=== PATIENT | female | born 1960 | race African-American/Black ===

== ENCOUNTER 2019-11-04 13:27 | Outpatient (CLI) | payer BC, SELFPAY ==
--- NOTE | ~2019-11-04 | MM_ITS ---
EXAMINATION: MM screening [facility] HISTORY: Screening mammogram TECHNIQUE: Craniocaudal and mediolateral oblique 3-D tomosynthesis images were obtained and synthetic 2-D images were generated. CAD analysis was submitted and interpreted. COMPARISON: Comparison to multiple prior studies sequentially, with oldest reviewed study dated 03/05. BREAST PARENCHYMAL COMPOSITION: The breasts are heterogeneously dense, which may obscure small masses . FINDINGS: There are benign bilateral breast calcifications. There is no evidence of suspicious mass, calcification, or architectural distortion to suggest malignancy in either breast. There has been no suspicious interval change. IMPRESSION: 1. No mammographic evidence of malignancy. 2. Recommend routine screening mammography in one year. BI-RADS Category 2: Benign finding(s). Reviewed, dictated and finalized at location A.
--- NOTE | ~2019-11-04 | DEXA_ITS ---
Bone Density Report Name: Suzette Olivo Age: 59 Sex: Female Ethnicity: Black Date of : 1960 Indication: postmenopausal; height loss; prior fracture; asthma or emphysema; Referring Provider: GURPREET MAC Study: Bone densitometry was performed. Exam Date: November 04, 2019 Accession number: [id number] Bone Density: Region BMD T-score Z-score Classification AP Spine (L1-L4) 0.860 -1.7 -1.2 Osteopenia Femoral Neck (Left) 0.704 -1.3 -0.8 Osteopenia Total Hip (Left) 0.815 -1.0 -0.7 Normal Total Hip Bilateral Avg 0.835 -0.8 -0.6 Normal Femoral Neck (Right) 0.795 -0.5 -0.1 Normal Total Hip (Right) 0.854 -0.7 -0.4 Normal World Health Organization criteria for BMD impression classify patients as: Normal (T-score at or above -1.0), Osteopenia (T-score between -1.0 and -2.5), or Osteoporosis (T-score at or below -2.5). 10-year Fracture Risk(1): Major Osteoporotic Fracture 5.3% Hip Fracture 0.4% Reported Risk Factors: [place] (Black), Neck BMD=0.704, BMI=32.5, previous fracture (1) FRAX(R) Version 3.08. Fracture probability calculated for an untreated patient. Fracture probability may be lower if the patient has received treatment. Clinical Information Provided by Patient: Has had a low trauma fracture Has the following medical conditions: Asthma or Emphysema Patient maximum height was 64 Menopause Age: 50 No regular weight bearing exercise Does not regularly consume dairy products Drinks caffeinated beverages Onset of menses at age 14 Number of children 1 Impression: The patient has low bone mass, based on the Total Spine T-score. The patient has an estimated ten-year risk of hip fracture of 0.4% and an estimated ten-year risk of major fracture of 5.3%, based on the WHO FRAX algorithm. The patient has risk factors, including: previous fracture. Discussion: BONE DENSITY IS LOW AT ONE OR MORE SKELETAL SITES. This patient's lowest T-score is low at one or more skeletal sites. It meets the World Health Organization's (WHO) criteria for ?low bone mass? (T-score between -1.0 and -2.5). The patient's 10-year risk of fracture as calculated by FRAX is less than the threshold where pharmacological therapy is recommended by the National Osteoporosis Foundation (NOF). However, all treatment decisions require clinical judgment and consideration of individual patient factors, including patient preferences, comorbidities, previous drug use, risk factors not captured in the FRAX model (e.g., frailty, falls, vitamin D deficiency, increased bone turnover, interval significant decline in bone density) and possible under or overestimation of fracture risk by FRAX. The patient should follow a healthful lifestyle (good nutrition with adequate calcium and vitamin D, and appropriate weight-bearing exercise). Follow-Up: Conside
== END 2019-11-04 13:28 | disposition home or self-care (01) ==
PROVIDERS: PCP Internal Medicine; Visit Provider Obstetrics & Gynecology Gynecology
DX: Z12.31 Encounter for screening mammogram for malignant neoplasm of breast (principal); Z78.0 Asymptomatic menopausal state; M85.89 Other specified disorders of bone density and structure, multiple sites
CPT/HCPCS: 77063; 77067; 77080

== ENCOUNTER 2020-05-27 00:18 | Outpatient (CLI) | payer BC, SELFPAY ==
[2020-05-27 18:59] LABS: SARS-CoV-2 RNA PCR Negative
== END 2020-05-27 00:19 | disposition home or self-care (01) ==
LOC: ANHCOVIDDT 00:18
PROVIDERS: PCP Internal Medicine; Visit Provider Internal Medicine Gastroenterology
DX: Z01.812 Encounter for preprocedural laboratory examination (principal); Z20.828 Contact with and (suspected) exposure to other viral communicable diseases
CPT/HCPCS: 87635; C9803; U0003

== ENCOUNTER 2020-05-30 01:17 | Day surgery (SDC) | payer BC, SELFPAY ==
[2020-05-24 10:21] VITALS: BMI 31.4
[2020-05-30 07:59] VITALS: BMI 31.6
[2020-05-30] MEDS: LACTATED RINGERS 1,000 ML 150 ML IV CONT (08:16)
[2020-05-30 08:17] VITALS: BP 116/69; PULSE 58; RESP 18; TEMP 36.3; O2SAT 100
--- NOTE | 2020-05-30 08:22 | WPDANESEPPF ---
Anes - Initial Pre Proc Eval Procedure: Operation Date: 05/30/20 09:00 Proposed Procedures p Screening Colonoscopy - Lele Carroll MD Date/Time: 05/30/20 08:22 Surgeon: Lele Carroll MD Pre Op Diagnosis: Neoplasm Screening Patient Data Age: 59 Gender: F Height: 5 ft 2 in Weight: 78.3 kg Last Vital Signs Temp 97.4 F L 05/30/20 08:17 Pulse 58 L 05/30/20 08:17 Resp 18 05/30/20 08:17 BP 116/69 05/30/20 08:17 Pulse Ox 100 05/30/20 08:17 Allergies Allergy/AdvReac Type Severity Reaction Status Date / Time codeine Allergy upset Verified 05/30/20 07:49 stomach aspirin AdvReac Mild Nausea Verified 05/30/20 07:49 Home Medications Medication Instructions Recorded Confirmed Type No Home Medications 05/24/20 05/30/20 History Patient hx anesthesia problems: none Family hx anesthesia problems: none PMFSH Past Medical History Medical History (Updated 05/30/20 @ 08:22 by Ld Martinez MD) Bronchitis uses inhalers daily Family History Family History (System 04/11/20 @ 08:09 by Santa Pizano) Father Family history of thoracic aortic aneurysm Social History Social History (System 04/11/20 @ 08:09 by Santa Pizano) Smoking status: Never smoker Alcohol intake: current Substance use: never Substance use type: does not use Living arrangements: with family Spiritual care concerns: No Anes - Eval Final PreProcedure Day of Procedure 05/30/20 08:22 Patient weight: overweight Heart: regular rate and rhythm Lungs: clear to auscultation Airway: Mallampati scale class II Neurological: alert and oriented Last oral intake: >/= 8 hours ASA classification: II Emergent: no Anesthetic plan: proceed Anesthesia type and monitoring: general GIVS and standard monitoring Informed Consent: The patient's anesthetic plan and its attendant risks and benefits were discussed with the patient/family/POA. Questions were solicited and answers provided to the satisfaction of the patient/family/POA.
--- NOTE | 2020-05-30 08:48 | PM.HPGS ---
History of Present Illness History of Present Illness Consent: Risks, benefits, and alternatives have been discussed and questions answered. Patient agrees to proceed with procedure. Chief complaint: Neoplasm Screening Narrative: Suzette Olivo is a 59 year old female here for first screening colonoscopy Review of Systems Constitutional: Constitutional: Denies headache(s) and Denies weakness Eyes: Eyes: Denies blurry vision ENT: Reports Normal hearing present, Denies headache(s) and Denies neck pain Cardiovascular: Cardiovascular: Denies chest pain and Denies dyspnea Respiratory: Respiratory: Denies dyspnea Gastrointestinal: Gastrointestinal: Reports no additional gastrointestinal complaints Genitourinary: Genitourinary: Denies dysuria Musculoskeletal: Musculoskeletal: Denies neck pain Integumentary/Breasts: Skin/Breast: Denies dry skin Neurologic: Reports Normal hearing present, Denies headache(s) and Denies weakness Psychiatric: Psychiatric: Denies anxiety Endocrine: Endocrine: Denies change in body appearance Hematologic/Lymphatic: Hematologic/Lymphatic: Denies easy bleeding Allergic/Immunologic: Allergic/Immunologic: Denies urticaria PMFSH Past Medical History Medical History (Updated 05/30/20 @ 08:49 by Lele Carroll MD) Bronchitis uses inhalers daily Colon cancer screening Family History Family History (System 04/11/20 @ 08:09 by Santa Pizano) Father Family history of thoracic aortic aneurysm Social History Social History (System 04/11/20 @ 08:09 by Santa Pizano) Smoking status: Never smoker Alcohol intake: current Substance use: never Substance use type: does not use Living arrangements: with family Spiritual care concerns: No Meds Home Medications and Allergies Home Medications Medication Instructions Recorded Confirmed Type No Home Medications 05/24/20 05/30/20 History Allergies Allergy/AdvReac Type Severity Reaction Status Date / Time codeine Allergy upset Verified 05/30/20 07:49 stomach aspirin AdvReac Mild Nausea Verified 05/30/20 07:49 Vital Signs Vital Signs - 24 hr 05/30/20 08:17 Temperature 97.4 F L Pulse Rate 58 L Respiratory Rate 18 Blood Pressure 116/69 Pulse Oximetry 100 Exam Const: General: comfortable and no acute distress HENMT: General nose exam: Normal nares present Eyes: General: appearance normal, both eyes and all related structures Neck: Neck: no JVD Resp: Auscultation: clear to auscultation bilaterally Cardio: Rate: regular rate Rhythm: regular rhythm GI: Inspection: non-distended GI Palp: Yes Soft to palpation Skin: General skin exam: normal color Neuro: General: gait normal Speech: normal speech Extrem: General: normal to inspection Psych: Mental Status: mental status grossly normal Assessment and Plan Assessment and plan (1) Colon cancer screening: Code(s): Z12.11 - Encounter for screening for malignant neoplasm of colon Status: Acute Assessment and Plan: will proceed with colonoscopy
[2020-05-30 09:12] VITALS: BP 87/41; PULSE 60; RESP 14; O2SAT 99
[2020-05-30 09:22] VITALS: BP 99/49; PULSE 57; RESP 21; O2SAT 100
[2020-05-30 09:32] VITALS: BP 111/54; PULSE 53; RESP 18; O2SAT 100
== END 2020-05-30 09:43 | disposition home or self-care (01) ==
PROVIDERS: PCP Internal Medicine; Visit Provider Internal Medicine Gastroenterology
PROC: 0DJD8ZZ Inspection of Lower Intestinal Tract, Via Natural or Artificial Opening Endoscopic (ICD-10-PCS; CPT 45378; principal; 2020-05-30 09:00)
DX: Z12.11 Encounter for screening for malignant neoplasm of colon (principal); D12.4 Benign neoplasm of descending colon; K64.8 Other hemorrhoids
CPT/HCPCS: 45385; 88305; J2704; J7120

== ENCOUNTER 2020-12-19 09:07 | Outpatient (CLI) | payer BC, SELFPAY ==
--- NOTE | ~2020-12-19 | MM_ITS ---
EXAMINATION: MM screening [facility] pedro l[facility] HISTORY: Screening TECHNIQUE: Craniocaudal and mediolateral oblique 3-D tomosynthesis images were obtained and synthetic 2-D images were generated. CAD analysis was submitted and interpreted. COMPARISON: Comparison to multiple prior studies sequentially, with oldest reviewed study dated 09/17. BREAST PARENCHYMAL COMPOSITION: The breasts are heterogenously dense, which may obscure small masses FINDINGS: There are stable benign-appearing bilateral breast calcifications. There is no evidence of suspicious mass, calcification, or architectural distortion to suggest malignancy in either breast. T here has been no suspicious interval change. IMPRESSION: 1. No mammographic evidence of malignancy. 2. Recommend routine screening mammography in one year. BI-RADS Category 2: Benign finding(s). Reviewed, dictated and finalized at location A.
== END 2020-12-19 09:08 | disposition home or self-care (01) ==
LOC: ANHIMG 09:10
PROVIDERS: PCP Internal Medicine; Visit Provider Obstetrics & Gynecology Gynecology
DX: Z12.31 Encounter for screening mammogram for malignant neoplasm of breast (principal)
CPT/HCPCS: 77063; 77067

== ENCOUNTER 2022-06-13 17:26 | Outpatient (CLI) | payer BC, SELFPAY ==
[2022-06-13 18:51] LABS: Vitamin D 25 Hydroxy 36.7 ng/mL
== END 2022-06-13 17:27 | disposition home or self-care (01) ==
LOC: ANHLAB 17:29
PROVIDERS: PCP Internal Medicine; Visit Provider Obstetrics & Gynecology Gynecology
DX: E55.9 Vitamin D deficiency, unspecified (principal)
CPT/HCPCS: 36415; 82306

== ENCOUNTER 2022-06-19 08:45 | Outpatient (CLI) | payer BC, SELFPAY ==
[2022-06-19 09:36] LABS: Alanine Aminotransferase 18 U/L (6-35); Albumin Level 3.9 g/dL (3.5-5.1); Alkaline Phosphatase 76 U/L (38-126); Anion Gap 9 mmol/L (8-16); Aspartate Amino Transferase 25 U/L (14-36); Bilirubin,Total 0.4 mg/dL (0.2-1.3); Blood Urea Nitrogen 12 mg/dL (7-17); Calcium 8.6 mg/dL (8.4-10.2); Carbon Dioxide 25 mmol/L (22-30); Chloride 108 mmol/L (98-107); Cholesterol 160 mg/dL (0-200); Estimated Glomerular Filt Rate > 60; Glucose 91 mg/dL (65-110); HDL Direct 59 mg/dL; Potassium 4.1 mmol/L (3.4-5.0); Sodium 142 mmol/L (137-145); Triglycerides 76 mg/dL (<150)
[2022-06-19 09:47] LABS: LDL Cholesterol Direct 61 mg/dL
== END 2022-06-19 08:46 | disposition home or self-care (01) ==
LOC: ANHLAB 08:49
PROVIDERS: PCP Internal Medicine; Visit Provider Internal Medicine
DX: Z00.00 Encounter for general adult medical examination without abnormal findings (principal)
CPT/HCPCS: 36415; 80053; 80061

== ENCOUNTER 2022-10-22 08:59 | Outpatient (CLI) | payer BC, SELFPAY ==
--- NOTE | ~2022-10-22 | DEXA_ITS ---
Bone Density Report Name: ABBY TUBBS Age: 62 Sex: Female Ethnicity: Black Date of : 1960 Indication: osteopenia; prior fracture; asthma or emphysema; postmenopausal Referring Provider: GURPREET MAC Study: Bone densitometry was performed. Exam Date: October 22, 2022 Accession number: [id number] Bone Density: Region BMD T-score Z-score Classification AP Spine(L1-L4) 0.858 -1.7 -1.0 Osteopenia Femoral Neck (Left) 0.706 -1.3 -0.6 Osteopenia Total Hip (Left) 0.798 -1.2 -0.7 Osteopenia Femoral Neck (Right) 0.776 -0.7 -0.1 Normal Total Hip (Right) 0.819 -1.0 -0.5 Normal Total Hip Mean 0.809 -1.1 -0.6 Osteopenia World Health Organization criteria for BMD impression classify patients as: Normal (T-score at or above -1.0), Osteopenia (T-score between -1.0 and -2.5), or Osteoporosis (T-score at or below -2.5). 10-year Fracture Risk(1): Major Osteoporotic Fracture 5.8% Hip Fracture 0.4% Reported Risk Factors: [place] (Black), Neck BMD=0.706, BMI=31.4, previous fracture (1) FRAX(R) Version 3.08. Fracture probability calculated for an untreated patient. Fracture probability may be lower if the patient has received treatment. Previous Exams: Region Exam Age BMD T-score BMD Change BMD Change Date g/cm2 vs Baseline vs Previous AP Spine (L1-L4) 10/22/2022 62 0.858 -1.7 -0.002 (-0.3%) -0.002 (-0.3%) 11/04/2019 59 0.860 -1.7 Total Hip(Left) 10/22/2022 62 0.798 -1.2 -0.016 (-2.0%) -0.016 (-2.0%) 11/04/2019 59 0.815 -1.0 Total Hip(Right) 10/22/2022 62 0.819 -1.0 -0.035 (-4.1%) -0.035 (-4.1%) 11/04/2019 59 0.854 -0.7 *Denotes significance at 95% confidence level, LSC for AP Spine = 0.022 g/cm2, LSC for Total Hip = 0.027 g/cm2 Clinical Information Provided by Patient: Has had a low trauma fracture Has the following medical conditions: Asthma or Emphysema Patient maximum height was 62 Menopause Age: 50 No regular weight bearing exercise Does not regularly consume dairy products Onset of menses at age 16 Number of children 1 Impression: The patient has low bone mass, based on the Total Spine T-score. The patient has an estimated ten-year risk of hip fracture of 0.4% and an estimated ten-year risk of major fracture of 5.8%, based on the WHO FRAX algorithm. The patient has risk factors, including: previous fracture. The BMD for the Total Hip(Right) decreased, changing by -4.1% since the last DXA exam.
--- NOTE | ~2022-10-22 | MM_ITS ---
EXAMINATION: MM screening [facility] w pedro luis HISTORY: Screening mammogram TECHNIQUE: Craniocaudal and mediolateral oblique 3-D tomosynthesis images were obtained and synthetic 2-D images were generated. CAD analysis was submitted and interpreted. COMPARISON: 12/19/2020, 11/04/2019, 09/17/2018 BREAST PARENCHYMAL COMPOSITION: The breasts are heterogeneously dense, which may obscure small masses . FINDINGS: Scattered benign-appearing calcifications are present. No suspicious mass, calcification, o r architectural distortion are identified in either breast to suggest malignancy. There has been no s uspicious interval change. IMPRESSION: 1. No mammographic evidence of malignancy. 2. Recommend routine screening mammography in one year. BI-RADS Category 2: Benign finding(s). Reviewed, dictated and finalized at location A. RVOIR ENGINEERING MANAGER
== END 2022-10-22 09:00 | disposition home or self-care (01) ==
PROVIDERS: PCP Internal Medicine; Visit Provider Obstetrics & Gynecology Gynecology
DX: Z12.31 Encounter for screening mammogram for malignant neoplasm of breast (principal); Z78.0 Asymptomatic menopausal state; M85.88 Other specified disorders of bone density and structure, other site; M85.852 Other specified disorders of bone density and structure, left thigh; M85.851 Other specified disorders of bone density and structure, right thigh
CPT/HCPCS: 77063; 77067; 77080

== ENCOUNTER 2023-06-10 09:15 | Outpatient (CLI) | payer BC, SELFPAY ==
[2023-06-10 10:07] LABS: Basophils Percent Auto 0.8 % (0.2-1.2); Eosinophils Absolute Auto 0.2 K/mm3 (0-0.3); Eosinophils Percent Auto 4.8 % (0-4.4); Immature Granulocyte Absolute 0.01 K/mm3 (0.00-0.031); Immature Granulocyte Percent A 0.3 % (0-0.5); Lymphocytes Absolute Auto 1.86 K/mm3 (0.9-3.2); Lymphocytes Percent Auto 46.5 % (18.3-44.2); Mean Corpuscular HGB Conc 35.1 g/dl (32-36); Mean Corpuscular Hemoglobin 29.5 pg (26-34); Mean Corpuscular Volume 84.1 fl (80-100); Mean Platelet Volume 11.9 fl (7.4-10.4); Monocytes Absolute Auto 0.4 K/mm3 (0.1-0.6); Monocytes Percent Auto 10.5 % (2.6-8.5); Neutrophils Absolute Auto 1.5 K/mm3 (1.3-6.7); Neutrophils Percent Auto 37.1 % (45.5-73.1); Platelet Count Result 139 k/mm3 (150-375); Red Cell Distribution Width 15.4 % (11.5-14.5)
[2023-06-10 10:36] LABS: Alanine Aminotransferase 15 U/L (6-35); Albumin Level 3.8 g/dL (3.5-5.1); Alkaline Phosphatase 60 U/L (38-126); Anion Gap 7 mmol/L (8-16); Aspartate Amino Transferase 25 U/L (14-36); Bilirubin,Total 0.5 mg/dL (0.2-1.3); Blood Urea Nitrogen 14 mg/dL (7-17); Calcium 8.7 mg/dL (8.4-10.2); Carbon Dioxide 23 mmol/L (22-30); Chloride 108 mmol/L (98-107); Cholesterol 158 mg/dL (0-200); Estimated Glomerular Filt Rate > 60; Glucose 118 mg/dL (65-110); HDL Direct 51 mg/dL; Potassium 3.6 mmol/L (3.4-5.0); Sodium 138 mmol/L (137-145); Triglycerides 72 mg/dL (<150)
[2023-06-10 10:47] LABS: LDL Cholesterol Direct 71 mg/dL
== END 2023-06-10 09:16 | disposition home or self-care (01) ==
LOC: ANHLAB 09:17
PROVIDERS: PCP Nurse Practitioner Family; Visit Provider Nurse Practitioner Family
DX: Z00.00 Encounter for general adult medical examination without abnormal findings (principal)
CPT/HCPCS: 36415; 80053; 80061; 85025

== ENCOUNTER 2023-06-18 14:16 | Outpatient (CLI) | payer BC, SELFPAY ==
[2023-06-18 14:53] LABS: Basophils Percent Auto 0.5 % (0.2-1.2); Eosinophils Absolute Auto 0.1 K/mm3 (0-0.3); Eosinophils Percent Auto 2.2 % (0-4.4); Hematocrit 37.6 % (37.0-47.0); Hemoglobin 12.9 g/dL (12.0-15.0); Immature Granulocyte Absolute 0.01 K/mm3 (0.00-0.031); Immature Granulocyte Percent A 0.2 % (0-0.5); Lymphocytes Absolute Auto 2.43 K/mm3 (0.9-3.2); Lymphocytes Percent Auto 43.9 % (18.3-44.2); Mean Corpuscular HGB Conc 34.3 g/dl (32-36); Mean Corpuscular Hemoglobin 28.4 pg (26-34); Mean Corpuscular Volume 82.8 fl (80-100); Mean Platelet Volume 11.2 fl (7.4-10.4); Monocytes Absolute Auto 0.4 K/mm3 (0.1-0.6); Monocytes Percent Auto 7.8 % (2.6-8.5); Neutrophils Absolute Auto 2.5 K/mm3 (1.3-6.7); Neutrophils Percent Auto 45.4 % (45.5-73.1); Platelet Count Result 190 k/mm3 (150-375); Red Blood Count 4.54 M/mm3 (4.2-5.4); Red Cell Distribution Width 15.1 % (11.5-14.5); White Blood Count 5.5 K/mm3 (4.5-10.0)
[2023-06-18 15:01] LABS: Hemoglobin A1C 5.7 % (<5.7)
== END 2023-06-18 14:17 | disposition home or self-care (01) ==
LOC: ANHLAB 14:17
PROVIDERS: PCP Nurse Practitioner Family; Visit Provider Nurse Practitioner Family
DX: D70.9 Neutropenia, unspecified (principal); R73.01 Impaired fasting glucose
CPT/HCPCS: 36415; 83036; 85025

== ENCOUNTER 2023-06-24 15:12 | Outpatient (CLI) | payer BC, SELFPAY ==
--- NOTE | ~2023-06-24 | XR_ITS ---
EXAMINATION:[id number]_[id number] DATE: 06/24/2023 15:34 INDICATION: Left neck pain TECHNIQUE: AP, lateral, and odontoid views of the cervical spine are provided. COMPARISON: None FINDINGS: Alignment is normal. The odontoid process is intact. No fracture is identified. The vertebr al body heights are maintained. There is mild loss of intervertebral disc space height at C4-5. Small degenerative osteophytes project from the anterior endplates of multiple vertebral bodies. There is multilevel mild facet and uncovertebral joint osteoarthritis. Prevertebral soft tissues are normal. IMPRESSION: 1. Mild cervical spondylosis without acute findings. Reviewed, dictated and finalized at location B. PLANNER
--- NOTE | ~2023-06-24 | XR_ITS ---
Left Shoulder Technique: AP and scapular Y views were obtained. Clinical History: Pain Findings: No fracture or dislocation is seen. Osseous alignment is anatomic. The glenohumeral and acr omioclavicular joint spaces are preserved. Soft tissues are unremarkable. Impression: Unremarkable left shoulder radiographs. Reviewed, dictated and finalized at [facility]. Impression: Unremarkable left shoulder radiographs.
[2023-06-24 17:47] LABS: Basophils Percent Auto 0.4 % (0.2-1.2); Eosinophils Absolute Auto 0.2 K/mm3 (0-0.3); Eosinophils Percent Auto 3.2 % (0-4.4); Hemoglobin 12.5 g/dL (12.0-15.0); Immature Granulocyte Absolute 0.01 K/mm3 (0.00-0.031); Immature Granulocyte Percent A 0.2 % (0-0.5); Lymphocytes Absolute Auto 2.32 K/mm3 (0.9-3.2); Mean Corpuscular HGB Conc 33.8 g/dl (32-36); Mean Corpuscular Hemoglobin 28.7 pg (26-34); Mean Corpuscular Volume 85.1 fl (80-100); Mean Platelet Volume 11.9 fl (7.4-10.4); Monocytes Absolute Auto 0.4 K/mm3 (0.1-0.6); Monocytes Percent Auto 6.9 % (2.6-8.5); Neutrophils Absolute Auto 2.2 K/mm3 (1.3-6.7); Neutrophils Percent Auto 43.3 % (45.5-73.1); Platelet Count Result 173 k/mm3 (150-375); Red Blood Count 4.35 M/mm3 (4.2-5.4); Red Cell Distribution Width 15.5 % (11.5-14.5)
[2023-06-24 18:07] LABS: Alanine Aminotransferase 16 U/L (6-35); Albumin Level 3.9 g/dL (3.5-5.1); Alkaline Phosphatase 64 U/L (38-126); Anion Gap 6 mmol/L (8-16); Aspartate Amino Transferase 23 U/L (14-36); Bilirubin,Total 0.5 mg/dL (0.2-1.3); Blood Urea Nitrogen 16 mg/dL (7-17); Calcium 8.9 mg/dL (8.4-10.2); Carbon Dioxide 26 mmol/L (22-30); Chloride 108 mmol/L (98-107); Cholesterol 164 mg/dL (0-200); Estimated Glomerular Filt Rate > 60; Glucose 104 mg/dL (65-110); HDL Direct 62 mg/dL; Potassium 3.8 mmol/L (3.4-5.0); Sodium 140 mmol/L (137-145); Triglycerides 82 mg/dL (<150)
[2023-06-24 18:08] LABS: Hemoglobin A1C 5.6 % (<5.7)
[2023-06-24 18:17] LABS: LDL Cholesterol Direct 74 mg/dL
== END 2023-06-24 15:13 | disposition home or self-care (01) ==
LOC: ANHIMG 15:18
PROVIDERS: PCP Nurse Practitioner Family; Visit Provider Nurse Practitioner Family
DX: Z00.00 Encounter for general adult medical examination without abnormal findings (principal); R73.01 Impaired fasting glucose; Z13.220 Encounter for screening for lipoid disorders
CPT/HCPCS: 36415; 72040; 73030; 80053; 80061; 83036; 85025

== ENCOUNTER 2023-07-15 14:25 | Outpatient (CLI) | payer BC, SELFPAY ==
--- NOTE | ~2023-07-15 | MR_ITS ---
MRI of the left shoulder Technique: Axial proton-density fat-sat images, coronal proton density fat-sat and T2 fat-sat images, and sagittal T1-weighted and T2 fat-sat images were acquired. Clinical History: Pain Findings: There is mild AC joint degenerative change. Coracoclavicular, coracoacromial, and coracohum eral ligaments appear intact. There is severe supraspinatus and infraspinatus tendinosis, with suspected moderate grade interstitia l tear at the very distal supraspinatus tendon insertion. Subscapularis tendon is intact. Tendon of l hayden head of the biceps is intact. No labral tear identified. Inferior glenohumeral ligament is intact. There is minimal fluid in the subacromial/subdeltoid bursa. No degenerative change or effusion to glenohumeral joint. No muscle atrophy or edema evident. Impression: Advanced supraspinatus and infraspinatus tendinosis with probable focal moderate grade interstitial t ear at the very distal supraspinatus tendon insertion. Minimal subacromial/subdeltoid bursitis. Reviewed, dictated and finalized at [facility]. CTOR QUALITY ASSURANCE Impression: Advanced supraspinatus and infraspinatus tendinosis with probable focal moderat e grade interstitial tear at the very distal supraspinatus tendon insertion. Minimal subacromial/subdeltoid bursitis.
--- NOTE | ~2023-07-15 | MR_ITS ---
MRI of the cervical spine Clinical History: Radiculopathy Technique: Axial T2-weighted and gradient images, and sagittal T1-weighted, T2-weighted, and STIR esthela ges were acquired. Findings: There is no fracture or subluxation of the cervical spine. Vertebral bodies maintain normal height and alignment. No bone marrow signal abnormality seen. No significant disc bulge or herniation seen at any cervical level. There is no spinal canal stenosis , cord compression, or neural foraminal narrowing of the cervical spine. No epidural mass or collecti on seen. No abnormal signal seen in the spinal cord. Paravertebral soft tissues are unremarkable. Impression: Unremarkable exam. Reviewed, dictated and finalized at location . ENTICESHIP TRAINING REPRESENTATIVE Impression: Unremarkable exam.
== END 2023-07-15 14:26 | disposition home or self-care (01) ==
LOC: ANHIMG 14:28
PROVIDERS: PCP Nurse Practitioner Family; Visit Provider Nurse Practitioner Family
DX: M25.512 Pain in left shoulder (principal); M54.12 Radiculopathy, cervical region; M75.52 Bursitis of left shoulder
CPT/HCPCS: 72141; 73221

== ENCOUNTER 2023-10-06 10:46 | Outpatient (CLI) | payer BC, SELFPAY ==
--- NOTE | ~2023-10-06 | US_ITS ---
EXAMINATION: US transvaginal DATE: 10/06/2023 11:13 INDICATION: Postmenopausal bleeding TECHNIQUE: Multiple transabdominal and endovaginal sonographic images of the pelvis were obtained. COMPARISON: None. FINDINGS: Uterus: 8.7 x 5.1 x 6.0 cm. Multiple uterine fibroids measuring up to 3.9 cm. Endometrial complex concepción sures 13 mm. Right Ovary: Not visualized. Left Ovary: . Visualized. There is no free fluid in the pelvis. IMPRESSION: Thickened endometrial stripe, consider gynecology referral and endometrial sampling. Multiple uterine fibroids. Bilateral ovaries not visualized. Reviewed, dictated and finalized at location K. ESALE ACCOUNT EXECUTIVE IMPRESSION: Thickened endometrial stripe, consider gynecology referral and endometrial samp ling. Multiple uterine fibroids. Bilateral ovaries not visualized.
== END 2023-10-06 10:47 ==
LOC: MICIMG 10:47
PROVIDERS: PCP Nurse Practitioner; Visit Provider Nurse Practitioner
DX: N95.0 Postmenopausal bleeding (principal); N85.00 Endometrial hyperplasia, unspecified; D25.9 Leiomyoma of uterus, unspecified
CPT/HCPCS: 76830

== ENCOUNTER 2023-10-20 00:46 | Day surgery (SDC) | payer BC, SELFPAY ==
[2023-10-17 09:19] VITALS: BMI 30.1
--- NOTE | 2023-10-17 09:23 | PC.NURSE ---
Report to the Outpatient Waiting Room, entrance under the green pavilion located off [facility], at time 1215 on date 10/20/23. Planned Procedure Time: 1415. Time changes happen often and if your time is changed the preop area will call you the afternoon before. - You and your visitor will be asked to self-screen and do not enter if you have any COVID symptoms. - A mask is optional within the hospital at this time. Patients may have clear liquids (water, carbonated beverages, clear teas, apple juice) until 3 hours prior to surgery with a maximum of 20 ounces. - No food from midnight until time of surgery Take the following medications with a SIP of water the morning of surgery: TYLENOL/INHALER IF NEEDED DO NOT STOP ANY OF YOUR OTHER PRESCRIPTION MEDICATIONS PRIOR TO SURGERY ?EXCEPT THE FOLLOWING Medications to discontinue per physician: N/A Date to take last dose: N/A Please no make-up, nail ivorian, hairspray, perfume, deodorant, or body powder the day of surgery. No jewelry (including any body piercings) or valuables the day of surgery, leave them at home. Please take a shower or bath the night before, or the morning of, surgery with an antibacterial soap. Wear comfortable, loose fitting clothing. - Jewelry must be removed prior to entering the operating room. Rings and piercings that are not removed may be cut off. - The hospital will not accept responsibility for valuables. - Please leave all valuables, including medications, at home the day of surgery. If you are going home after surgery, a licensed national flatbed truck driver must drive you home. - NO public transportation without another adult if you receive anesthesia. - We recommend that an adult stay with you for 24 hours following discharge. - We also recommend that you do not drive, make important decision, drink alcoholic beverages, or take any drugs that were not prescribed by your health care provider for at least 24 hours after your discharge time. Follow any additional instructions given to you from your surgeon. If you or anyone in your household have experienced Covid symptoms in the past week, please notify your surgeon or the nurse liaison at the phone number below for possible testing. Telephone instructions given to PT - ABBY BURTON and asked if any additional questions and then verbalized understanding. Patient advised to call surgeon office or pre surgery nurse liaison [phone] if any additional questions.
--- NOTE | 2023-10-20 08:14 | WPDHPUPDATE1 ---
History and Physical Update Update Date/Time: 10/20/23 08:14 History and Physical has been reviewed, including an updated exam of the patient. There are NO changes in the patient's condition. Risks, benefits, and alternatives have been discussed and questions answered. Patient agrees to proceed with procedure.
--- NOTE | 2023-10-20 08:14 | PM.HPGS ---
History of Present Illness History of Present Illness Consent: Risks, benefits, and alternatives have been discussed and questions answered. Patient agrees to proceed with procedure. Chief complaint: Post Menopausal Bleeding, Fibroids Narrative: Suzette Guajardo is a 63 year old female with an episode of postmenopausal bleeding. Pelvic ultrasound revealed a thickened endometrium at 13mm. In addition the patient was multiple fibroids. It was recommended to proceed with D&C hysteroscopy in the operating room due to the fibroids possibly interfering with visualization. Risks of infection, bleeding, perforation, fluid imbalance, and possible pathology was discussed. The patient voices understanding and agrees to proceed. Review of Systems Review of Systems: not repeated day of surgery; patient states no changes in status PMFSH Past Medical History Medical History (Updated 10/20/23 @ 08:17 by Bertha Ragsdale MD) Bronchitis uses inhalers daily History of ectopic 1984 and 1992 both surgically managed (normal spontaneous vaginal delivery) Surgical History Surgical History (Updated 10/20/23 @ 08:17 by Bertha Ragsdale MD) History of ankle surgery secondary to fracture 2007 Family History Family History Father Family history of thoracic aortic aneurysm Social History Social History Smoking packs per day: 1 Smoking cigarettes per day: 20.0 Years smoked: 30 Smoking pack-years: 30.00 Smoking status: Former smoker Tobacco type: cigarettes Second hand tobacco smoke exposure: No Smoking end date: 08/18/12 Alcohol intake: current Alcohol use details: 2/MONTH Substance use: never Substance use type: does not use Do You Feel Safe in your Home?: Yes Lack of Transportation: No Lack of Food: Never True Current Housing: I Have Housing Concerned About Future Housing: No Difficulty Paying Gas/Electric Bills: No Difficulty Paying for Meds: No Currently Unemployed: No Education: High School Diploma/GED Difficulty w/ Childcare or Family Care: No Living arrangements: with family Spiritual care concerns: No Meds Home Medications and Allergies Home Medications Medication Instructions Recorded Confirmed Type acetaminophen 500 mg tablet 500 mg PO Q6H PRN Pain 07/24/21 10/17/23 History (Tylenol Extra Strength) albuterol sulfate 90 mcg/actuation 1 puff inhalation Q6H PRN 11/02/22 03/01/24 Rx aerosol inhaler (ProAir HFA) bronchospasm #8.5 grams Allergies Allergy/AdvReac Type Severity Reaction Status Date / Time codeine Allergy Severe upset Verified 10/17/23 09:18 stomach aspirin AdvReac Mild Nausea Verified 10/17/23 09:18 Exam Const: General: healthy appearing and alert Orientation/consciousness: patient oriented x3 Resp: Effort & Inspection: normal respiratory effort : External Female Exam: normal external appearance Speculum Exam - Vagina: normal appearance of the vagina and normal vaginal discharge Speculum Exam - Cervix: normal appearance of the cervix Bimanual exam- vagina & uterus: uterine size normal and consistency normal Bimanual Exam- Adnexa, other: normal adnexae and No adnexal tenderness Neuro: General: patient oriented x3 Assessment and Plan Assessment and plan (1) Post-menopausal bleeding: Code(s): N95.0 - Postmenopausal bleeding Status: Acute Assessment and Plan: plan to proceed with D&C hysteroscopy
--- NOTE | 2023-10-20 08:30 | WPDANESEPPF ---
Anes - Initial Pre Proc Eval Procedure: Operation Date: 10/20/23 14:15 Proposed Procedures p Hysteroscopy Dilation and Curettage - Bertha Ragsdale MD Date/Time: 10/20/23 08:30 Surgeon: Bertha Ragsdale MD Pre Op Diagnosis: Post Menopausal Bleeding, Fibroids Patient Data Age: 63 Gender: F Height: 1.6 m Weight: 77.15 kg Allergies Allergy/AdvReac Type Severity Reaction Status Date / Time codeine AdvReac Severe upset Verified 10/20/23 12:08 stomach aspirin AdvReac Mild Nausea Verified 10/20/23 12:08 Home Medications Medication Instructions Recorded Confirmed Type acetaminophen 500 mg tablet 500 mg PO Q6H PRN Pain 07/24/21 10/17/23 History (Tylenol Extra Strength) albuterol sulfate 90 mcg/actuation 1 puff inhalation Q6H PRN 06/19/22 10/17/23 Rx aerosol inhaler (ProAir HFA) bronchospasm #8.5 grams Patient hx anesthesia problems: none Family hx anesthesia problems: none Results Review: All pre-operative results and documents have been reviewed as part of the pre-operative evaluation. [facility] Past Medical History Medical History (Updated 10/20/23 @ 08:31 by Torey Enamorado DO) Anxiety Bronchitis uses inhalers daily Fibroid History of ectopic 1984 and 1992 both surgically managed (normal spontaneous vaginal delivery) Surgical History Surgical History (Updated 10/20/23 @ 08:31 by Torey Enamorado DO) History of ankle surgery secondary to fracture 2007 History of tubal ligation Family History Family History Father Family history of thoracic aortic aneurysm Social History Social History Smoking packs per day: 1 Smoking cigarettes per day: 20.0 Years smoked: 30 Smoking pack-years: 30.00 Smoking status: Former smoker Tobacco type: cigarettes Second hand tobacco smoke exposure: No Smoking end date: 08/18/12 Alcohol intake: current Alcohol use details: 2/MONTH Substance use: never Substance use type: does not use Do You Feel Safe in your Home?: Yes Lack of Transportation: No Lack of Food: Never True Current Housing: I Have Housing Concerned About Future Housing: No Difficulty Paying Gas/Electric Bills: No Difficulty Paying for Meds: No Currently Unemployed: No Education: High School Diploma/GED Difficulty w/ Childcare or Family Care: No Living arrangements: with family Spiritual care concerns: No Anes - Eval Final PreProcedure Day of Procedure 10/20/23 08:30 Patient weight: obese Heart: regular rate and rhythm Lungs: clear to auscultation Airway: Mallampati scale class II Neurological: alert and oriented Last oral intake: >/= 8 hours ASA classification: II Emergent: no Anesthetic plan: proceed Anesthesia type and monitoring: general GIVS and standard monitoring Results Review: All pre-operative results and documents have been reviewed as part of the pre-operative evaluation. Informed Consent: The patient's anesthetic plan and its attendant risks and benefits were discussed with the patient/family/POA. Questions were solicited and answers provided to the satisfaction of the patient/family/POA.
[2023-10-20] MEDS: ACETAMINOPHEN 500 MG TABLET 1000 MG PO (12:11)
[2023-10-20 12:25] VITALS: BP 131/93; PULSE 67; RESP 16; TEMP 36.2; O2SAT 100
[2023-10-20] MEDS: LACTATED RINGERS 1,000 ML 30 ML IV CONT (13:44)
--- NOTE | 2023-10-20 13:44 | W.PM.PROC2 ---
Procedure Note - Detailed Date of Procedure 10/20/23 Pre-op Diagnosis Post Menopausal Bleeding Post-op Diagnosis Same Procedure Performed D&C hysteroscopy with endometrial polypectomy Surgeon Bertha Ragsdale MD Anesthesia MAC Findings The uterus sounds to 8cm and appears grossly atrophic. There is a large polyp arising from the left fundus. There was a sessile fibroid posteriorly and a sessile fibroid on the right sidewall. Description of Procedure The patient is taken to the operating room and placed under anesthesia in the dorsal lithotomy position. She was prepped and draped in the usual sterile. A bivalve speculum was placed in the vagina and the cervix grasped on the anterior lip with a tenaculum. The uterus is sounded to 8cm. The hysteroscope was placed and with the large polyp noted the resection device is opened and placed. Under direct visualization the polyp was removed in its entirety. The endometrium was fully visible around the fibroids therefore I did not resect the fibroids. Estimated Blood Loss 5 Drains No Packing No Pathology Yes ( Endometrial shavings and curettings) Complications No immediate complications Condition Stable Disposition PACU
[2023-10-20 13:49] VITALS: BP 97/63; PULSE 62; RESP 16; O2SAT 100
[2023-10-20 14:20] VITALS: BP 117/70; PULSE 56; RESP 16
[2023-10-20 14:39] VITALS: BP 98/56; PULSE 59; RESP 16
== END 2023-10-20 14:51 | disposition home or self-care (01) ==
PROVIDERS: PCP Nurse Practitioner Family; Visit Provider Obstetrics & Gynecology Gynecology
PROC: 0U5B8ZZ Destruction of Endometrium, Via Natural or Artificial Opening Endoscopic (ICD-10-PCS; CPT 58563; principal; 2023-10-20 14:15)
DX: N95.0 Postmenopausal bleeding (principal); N84.0 Polyp of corpus uteri; J40 Bronchitis, not specified as acute or chronic; Z87.891 Personal history of nicotine dependence; E66.9 Obesity, unspecified; Z68.29 Body mass index [BMI] 29.0-29.9, adult; Z79.51 Long term (current) use of inhaled steroids
CPT/HCPCS: 58558; 88305; A9270; J2250; J2704; J3010; J7120

== ENCOUNTER 2023-12-17 10:09 | Outpatient (CLI) | payer BC, SELFPAY ==
--- NOTE | ~2023-12-17 | MM_ITS ---
EXAMINATION: MM screening rebecca BI w pedro luis HISTORY: Screening TECHNIQUE: Craniocaudal and mediolateral oblique 3-D tomosynthesis images were obtained and synthetic 2-D images were generated. CAD analysis was submitted and interpreted. COMPARISON: Comparison to multiple prior studies sequentially, with oldest reviewed study dated 2018. BREAST PARENCHYMAL COMPOSITION: Dense: The breasts are heterogeneously dense, which may obscure small masses FINDINGS: There is no evidence of suspicious mass, calcification, or architectural distortion to sugg est malignancy in either breast. There has been no suspicious interval change. IMPRESSION: 1. No mammographic evidence of malignancy. 2. Recommend routine screening mammography in one year. BI-RADS Category 1: Negative Reviewed, dictated and finalized at location B.
== END 2023-12-17 10:10 | disposition home or self-care (01) ==
LOC: ANHIMG 10:12
PROVIDERS: PCP Nurse Practitioner Family; Visit Provider Obstetrics & Gynecology Gynecology
DX: Z12.31 Encounter for screening mammogram for malignant neoplasm of breast (principal)
CPT/HCPCS: 77063; 77067

== ENCOUNTER 2024-11-04 08:04 | Outpatient (CLI) | payer BC, SELFPAY ==
[2024-11-04 09:43] LABS: Basophils Percent Auto 0.7 % (0.2-1.2); Eosinophils Absolute Auto 0.2 K/mm3 (0-0.3); Eosinophils Percent Auto 3.7 % (0-4.4); Hemoglobin 13.9 g/dL (12.0-15.0); Immature Granulocyte Absolute 0.01 K/mm3 (0.00-0.031); Immature Granulocyte Percent A 0.2 % (0-0.5); Lymphocytes Absolute Auto 2.19 K/mm3 (0.9-3.2); Lymphocytes Percent Auto 47.9 % (18.3-44.2); Mean Corpuscular HGB Conc 34.8 g/dl (32-36); Mean Corpuscular Hemoglobin 30.1 pg (26-34); Mean Corpuscular Volume 86.6 fl (80-100); Mean Platelet Volume 12.3 fl (7.4-10.4); Monocytes Absolute Auto 0.3 K/mm3 (0.1-0.6); Neutrophils Absolute Auto 1.9 K/mm3 (1.3-6.7); Neutrophils Percent Auto 40.5 % (45.5-73.1); Platelet Count Result 145 k/mm3 (150-375); Red Blood Count 4.62 M/mm3 (4.2-5.4); Red Cell Distribution Width 13.6 % (11.5-14.5); White Blood Count 4.6 K/mm3 (4.5-10.0)
[2024-11-04 09:58] LABS: Alanine Aminotransferase 21 U/L (6-35); Albumin Level 4.3 g/dL (3.5-5.1); Alkaline Phosphatase 56 U/L (38-126); Anion Gap 8 mmol/L (4-12); Aspartate Amino Transferase 30 U/L (14-36); Bilirubin,Total 0.8 mg/dL (0.2-1.3); Blood Urea Nitrogen 16 mg/dL (7-17); Calcium 8.9 mg/dL (8.4-10.2); Carbon Dioxide 25 mmol/L (22-30); Chloride 107 mmol/L (98-107); Cholesterol 184 mg/dL (0-200); Estimated Glomerular Filt Rate 53; Glucose 97 mg/dL (65-110); HDL Direct 82 mg/dL; Potassium 4.3 mmol/L (3.4-5.0); Sodium 140 mmol/L (137-145); Triglycerides 87 mg/dL (<150)
[2024-11-04 10:03] LABS: Iron 101 ug/dL (37-170)
[2024-11-04 10:09] LABS: LDL Cholesterol Direct 67 mg/dL
[2024-11-04 10:14] LABS: Percent Iron Saturation 41 % (20-50)
[2024-11-04 10:23] LABS: Hemoglobin A1C 5.6 % (<5.7)
== END 2024-11-04 08:05 | disposition home or self-care (01) ==
LOC: ANHLAB 08:05
PROVIDERS: PCP Nurse Practitioner Family; Visit Provider Nurse Practitioner Family
DX: Z00.00 Encounter for general adult medical examination without abnormal findings (principal); R06.02 Shortness of breath; R73.01 Impaired fasting glucose
CPT/HCPCS: 36415; 80053; 80061; 82306; 82728; 83036; 83540; 83550; 85025

== ENCOUNTER 2024-12-13 09:15 | Outpatient (CLI) | payer BC, SELFPAY ==
--- OUTSIDE RECORDS SUMMARY | 2024-12-13 09:55 | XMS_ITS | Data Portability ---
Author Organization [place] - [facility] [employer], Main Office Address [address] [place] [address] Care Team Providers Care Sign Painter Name Role Phone THOMAS MENDEZ Primary Care Provider [phone] CUAUHTEMOC VIGIL Lab Technologist [phone] Assessment Encounter Date Assessment Date Assessment LastModified by Organization Details LastModified Time 11/28/2023 11/28/2023 63-year-old patient presents today with right foot pain after a fall on 11/24 23. She states she was stepping off of the bus when she stepped into a hole and twisted her right foot. She also landed on her right outstretched arm. She presented to the emergency room where x-rays were taken. She was told she had a fracture in her foot. At that time she had swelling in her right wrist but no pain. She presents today in a boot and a wrist brace. Today she rates the pain in her foot a 5/10. She denies any pain in the wrist. Review of systems per patient questionnaire Imaging: X-rays of the right foot show a slightly displaced avulsion fracture of the base of the 5th metatarsal. No obvious fracture in the right wrist. Physical exam: Boot was removed. No edema or bruising present. Pain with palpitation over base of the 5th metatarsal. No pain around ankle or elsewhere around foot. Able to perform ankle range of motion and wiggle toes. Sensation intact throughout. No pain with firm palpitation around the wrist or hand. No bruising or edema. No issues with wrist or hand range of motion. Sensation intact throughout. We will have her remain in the boot for a few weeks while her fracture heals. She is weight-bearing as tolerated. She can ice and elevate as well as take anti-inflammator ies for pain. She has no pain or issues with the wrist. She does not need to wear the wrist brace if she does not want to. We will see her back in 2-3 weeks with x-rays of the foot to check her progress. She is in agreement with this plan. Not available 11/29/2023 12:35:04 12/17/2023 12/17/2023 63-year-old female presents for follow-up of her right foot base of the 5th metatarsal avulsion. The injury happened on 12/06/2023. She has been wearing a Cam boot, icing, and taking Tylenol. She has gotten somewhat better, reports her pain as 6/10. He still has tenderness over the base of the 5th metatarsal. Sensation intact to light touch throughout. Good ankle and toe range of motion. X-rays were reviewed, demonstrating a base of the 5th metatarsal avulsion We will continue with weight-bearing as tolerated in the boot. We will send her to physical therapy, where they can potentially do some modalities such as ultrasound or stem. 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 We will have her follow-up in 4 weeks with repeat x-rays. Not available 12/17/2023 22:45:18 01/14/2024 01/14/2024 63-year-old female presents for follow-up of her right foot, pseudo Darby fracture being treated conservatively. She has been doing physical therapy, also taking Tylenol. She currently rates her pain as 4/10. She is still wearing the boot. She still has tenderness palpation at the base of the 5th metatarsal. Good ankle range of motion, neurovascular intact. X-rays reviewed, demonstrating a healing pseudo Darby avulsion fracture with callus formation At this point she still has some tenderness so we will need to give it a little bit more time. She should continue doing physical therapy, wearing the boot. We will see her back in 4 weeks with repeat x-rays. At that time, as long as her pain is improved, we will anticipate weaning her out of the boot into a lace-up ankle brace and into a regular shoe. 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 She has not ready for that yet, but may be when she comes out of the boot next time. Not available 01/14/2024 18:56:13 02/11/2024 02/11/2024 63-year-old female presents for follow-up of her right pseudo Darby fracture treated conservatively. He has been about 6 weeks since her injury. She has been in a boot. She reports feeling better, and still working on getting the swelling down. She worked with physical therapy with a primarily ice her and she feels like that has been helping. She currently rates her pain as 4/10. She feels like she is ready to return to driving, and has been driving her own car without difficulty. 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 She has some slight soreness at the base of 5th metatarsal, full ankle range of motion. No difficulty with ambulation. x-rays were reviewed, demonstrating maintenance of alignment. Callus formation.Fractu re line still visible At this point she is progressing well. She should continue with the home exercises and continue to ice. She is cleared to drive as tolerated beginning on February 15. We will have her follow up in 4-6 weeks for recheck. Not available 02/12/2024 18:51:14 03/24/2024 03/24/2024 63-year-old female presents for follow-up of her right pseudo Darby fracture treated conservatively. He has been about 6 weeks since her injury. She has been walking in a shoe and back to work since February 15. She reports feeling good. She does not have discomfort in the foot until towards the end of the day after work. She has some slight soreness at the base of 5th metatarsal, full ankle range of motion. No difficulty with ambulation. At this point she is progressing well. She is cleared for fully duty and does not need to return for rechecks unless new issues arise. She is in agreement with this plan. Not available 03/24/2024 14:21:42 Plan of Treatment Reminders Order Date Submit Date Provider Last Modified By Organization Details Last Modified Time Details Appointments None recorded. Lab None recorded. Referral physical therapist referral - continuati on of therapy 2023 024 [facility] [place], [address] [place] [address], [place], [address], 16:25:20 physical therapist referral - W/C. Please contact pt to schedule apt for R foot. Thanks 2023 024 [facility] [place], [address], [place], [address], 4 05:41:08 Procedures None recorded. Surgeries None recorded. Imaging XR, foot 2023 [facility] [place], [address], [place], [address], 4 14:44:48 XR, foot 2023 024 [facility] [place], [address], [place], [address], 4 00:17:02 XR, foot, 3 or more view 2023 024 [facility] [place], [address], [place], [address], 4 07:38:39 Medication Orders None recorded. Patient TargetsNo targets recorded. Patient InstructionsNo instructions recorded. Reason for Referral Physical Therapist Referral for Pain in right foot R foot W/C. Please contact pt to schedule apt for R foot. Thanks Referring Physician: Suman Andino, Orthopedic Surgery, Encounter Date: 12/17/2023 Physical Therapist Referral for Pain in right foot continuation of therapy Referring Physician: Suman Andino, Orthopedic Surgery, Encounter Date: 01/14/2024 Results Created Date Observation Date Name Description Value Unit Range Abnormal Flag Note LastModifiedBy Organization Detail LastModifiedTime 11/26/1911/24/2023 XR, foot, 3 or more view No observ ation record ed. [email or web address] Not Available 2023 11:07:43 12/17/19 XR, foot, 3 or more view No observ ation record ed. [email or web address] [facility] [place] [address], [place], [address], 12/17/2023 14:40:24 01/14/20 24 XR, foot No observ ation record ed. [email or web address] [facility] [place] [address], [address], 01/14/2024 14:12:20 02/11/20 24 XR, foot No observ ation record ed. [email or web address] [facility] [place] [address], [address], 02/11/2024 14:18:58 Result Notes None recorded. Problems Name Problem SNOMED Code Status Onset Date Resolution Date Notes Provider Name and Address Organization Details Recorded Time Pain in right foot 7678626859754 07 Active 2023 NGUYEN Judge [email or web address] [facility] [employer] 4 09:56:53 Pain of right wrist 5944997121868 00 Active 2023 NGUYEN Judge, [employer] 4 10:04:23 Closed fracture of fifth metatarsal bone 29473547 Active 2023 NGUYEN Judge, [employer] [facility] 14:13:14 Problem Notes None recorded. Procedures Surgical History Date Name Laterality Status Provider Name and Address Organization Details Recorded Time Ankle Surgery completed NGUYEN Valdovinos [email or web address] [employer] 11/28/2023 09:56:18 Imaging Results Imaging Date Name Status LastModified by [facility] Details LastModified Time 11/24/2023 XR, foot, 3 or more view completed [email or web address] Information not available 11/26/2023 11:07:43 12/17/2023 XR, foot, 3 or more view completed [email or web address] [facility] [place] [address], [address], 12/17/2023 14:40:24 01/14/2024 XR, foot completed [email or web address] [facility] [place] [address], [place], [address], 01/14/2024 14:12:20 02/11/2024 XR, foot completed [email or web address] [facility] [place] [address], [place], [address], 02/11/2024 14:18:58 Procedure Notes None recorded. Medical Equipment None Reported. Allergies No known drug allergies Medications Name Sig Start Date Stop Date Status Note LastModified by Organization Details LastModified Time metronidazole 0.75 % (37.5 mg/5 gram) vaginal gel active Not Available Not Available Not Available alprazolam 0.25 mg tablet 11/27 completed Not Available Not Available Not Available diazepam 2 mg tablet 11/27 completed Not Available Not Available Not Available ergocalciferol (vitamin D2) 1,250 mcg (50,000 unit) capsule 11/27 completed Not Available Not Available Not Available albuterol sulfate HFA 90 mcg/actuation aerosol inhaler active Not Available Not Available Not Available naproxen 500 mg tablet active Not Available Not Available No t Available diazepam 5 mg tablet 11/27 completed Not Available Not Available Not Available mometasone 0.1 % topical solution 2 drops for ear 2 times a day for 30 days 11/27 completed Not Available Not Available Not Available Vitals Date Recorded Body height Body mass index (BMI) Body weight Pain severity - 0-10 verbal numeric rating [Score] - Reported Provider Name and Address Organization Details Last Updated DateTime 11/28/2023 160.02 cm 30.5 kg/m2 75624.89 g NGUYEN Rob [facility] 11/28/2023 09:54:44 Date Recorded Body height Body mass index (BMI) Body weight Provider Name and Address Organization Details Last Updated DateTime 12/17/2023 160.02 cm 30.5 kg/m2 39527.89 g Jeannette Person CNA [facility] 12/17/2023 14:38:42 Date Recorded Body height Body mass index (BMI) Body weight Provider Name and Address Organization Details Last Updated DateTime 01/14/2024 160.02 cm 30.5 kg/m2 97699.89 g Jeannette Person CNA [facility] [employer] [facility] 01/14/2024 14:11:39 Date Recorded Body height Body mass index (BMI) Body weight Provider Name and Address Organization Details Last Updated DateTime 02/11/2024 162.56 cm 29.5 kg/m2 44647.89 g Jeannette Person CNA [facility] [employer] [facility] 02/11/2024 14:18:17 Date Recorded Body height Body mass index (BMI) Body weight Pain severity - 0-10 verbal numeric rating [Score] - Reported Provider Name and Address Organization Details Last Updated DateTime 03/24/2024 162.56 cm 29.5 kg/m2 22761.89 g 2 NGUYEN Judge [facility] [employer] [facility] 03/24/2024 14:12:40 Social History Question Answer Notes LastModified by Organizat ion Details LastModified Time Tobacco Smoking Status Former Smoker Jemima LowryNGUYEN medellin [facility] [employer] [facility] 11/28/2023 09:55:57 What Is Your Level Of Alcohol Consumption? Occasional [id number] Information not available 10/16/2022 In The 14 Days Before Symptom Onset, Have You Had Close Contact With A Laboratory-confir med COVID-19 While That Case Was Ill? No [id number] Information not available 10/16/2022 In The 14 Days Before Symptom Onset, Have You Had Close Contact With A Person Who Is Under Investigation For COVID-19 While That Person Was Ill? No [id number] Information not available 10/16/2022 What Was The Date Of Your Most Recent Tobacco Screening? 11/28/2023 [email or web address] Information not available 11/28/2023 Have You Ever Been Counseled For Unhealthy Alcohol Use? No [id number] Information not available 10/16/2022 Do You Use Any Illicit Or Recreational Drugs? No [id number] Information not available 10/16/2022 Have You Recently Traveled Abroad? No [id number] Information not available 10/16/2022 Sex: Unknown Functional Status None recorded. Mental Status None recorded. Family History Relationship Description Onset Age of this Age Resolved Age Notes LastModified by Organization Details LastModified Time Father No current problems or disability [id number] Not available 10/16/2022 23:56:26 Mother No current problems or disability [id number] Not available 10/16/2022 23:56:26 Medical History Condition Response MRSA N SLEEP APNEA N ALLERGIES/HAYFEVER N LUNG DISEASE/DISORDER N INSOMNIA N HISTORY OF DRUG ABUSE N RADIATION / CHEMOTHERAPY N COPD N HIGH CHOLESTEROL / HYPERLIPIDEMIA N HYPERTHYROIDISM N BLOOD DISEASES N EAR OR HEARING PROBLEMS N HYPOTHYROIDISM N SHINGLES N DEPRESSION (INCLUDING POST ) N HAVE YOU BEEN HOSPITALIZED OR SEEN IN [facility] IN THE PAST YEAR ? N STROKE/TIA N ULCERS N OBESITY N ANEURYSM N HISTORY WITH COMPLICATIONS WITH ANESTHES IA ? N NO SIGNIFICANT PAST MEDICAL HISTORY N USE OF BLOOD THINNERS N DIABETES, TYPE N PARATHYROID DISEASE N ENT N SEASONAL ALLERGIES N HEARTBURN / REFLUX Y HEPATITIS / LIVER DISEASE N SLEEP DISORDER N HEADACHES/MIGRAINES N SEIZURES/EPILEPSY N CHF N PACEMAKER N DIZZINESS N HEART DISEASE/HEART PROBLEMS N AIDS/HIV N FRACTURES N HYPERTENSION N CANCER: SPECIFY N TOURETTE'S N BLOOD TRANSFUSION N ANESTHESIA COMPLICATIONS N ANEMIA/BLOOD DISORDER Y CHRONIC EAR INFECTIONS Y TUBERCULOSIS N Gynecological HistoryNo gynecological history recorded. Obstetrics History GPAL:G 0 P 0 0 0 0 Past Encounters Encounter ID Performer Location Encounter Start Date Encounter Closed Date Diagnosis/Indication Diagnosis SNOMED-CT Code Diagnosis ICD10 Code Diagnosis Note [id number] [facility] [place] [address] [place] [address] 06/13/2021 00:00:00 06/13/2021 10:10:07 [id number] Ashley Villasenor NP [facility] [place] [address] [place] [address] 11/28/2023 09:34:06 11/28/2023 10:16:11 Pain in right foot 7179458279 51362 M79.671 Pain of right wrist 3169 311023 67104 M25.871 [id number] Suman Andino MD [facility] [place] [address] [place] [address] 12/17/2023 14:35:59 12/17/2023 15:17:02 Pain in right foot 9501384749 90341 M79.463 [id number] Suman Andino MD [facility] [place] [address] [place] [address] 01/14/2024 14:08:21 01/14/2024 14:38:05 Pain in right foot 7364025529 74167 M79.404 [id number] Suman Andino MD [facility] [place] [address] [place] [address] 02/11/2024 14:14:49 02/11/2024 15:12:04 Pain in right foot [id number] 56380 M79.774 [id number] Ashley Villasenor NP [facility] [place] [address] [place] [address] 03/24/2024 14:08:20 03/24/2024 14:25:04 Pain in right foot 4157077175 95497 M79.671 Closed fra cture of fifth metatarsal bone 05986655 S92.354D Health Concerns Section Related Observation LastModified by Organization Detai ls LastModified Time None Recorded Concern Status LastModified by Organization Details LastModified Time None Recorded Advance Directives Directive None Recorded Payers Encounter Date Sequence Insurance Name Policy Number Policy Bojorquez Covered Member ID Bojorquez Member ID Guarantor Name 11/28/2023 1 [place] [id number] Gurinder Guajardo [id number] Suzette Olivo Guajardo 12/17/2023 BRENDEN Bradford Olivo [employer] Bradford Olivo Guajardo 01/14/2024 BRENDEN Bradford [facility] Suzette [facility] 02/11/2024 BRENDEN Bradford Olivo [employer] [facility] 03/24/2024 BRENDEN Bradford Olivo Guajardo [facility] OBGyn Episode No OBEpisode recorded.
--- NOTE | 2024-12-13 16:18 | P.PCNPFT_ITS ---
PFT Procedure Performed PFT Procedure Performed Spirometry with Pre/Post Bronchodilator Diffusing Cap (DLCO) Flow Vol Loop PFT Interpretation This is a pulmonary function test with pre and post-bronchodilator spirometry, plethysmography and diffusing capacity. The test was performed and results interpreted in accordance with the 2019 and 2005 ATS/ERS Task Force guidelines respectively using the Global Lung Function Initiative-2012 reference equations. Patient demonstrated good effort and cooperation. Reproducibility criteria were met. The quality of the pre bronchodilator spirometry maneuver was Grade A and post bronchodilator spirometry maneuver was Grade A. Of note, unable to complete plethysmography due to equipment malfunction at the time of testing. Findings: Spirometry: The contour the inspiratory and expiratory flow tracing are normal. The pre bronchodilator FVC is 1.70 L, 67% predicted. The pre bronchodilator FEV1 is 1.33 L, 66% predicted. The pre bronchodilator FEV1: FVC ratio is 78%. the post bronchodilator FVC is 1.92 L, representing a 13% increase. The post bronchodilator FEV1 is 1.52 L, representing a 14% increase. The post bronchodilator FEV1: FVC ratio is 79%. Diffusing capacity: The diffusing capacity unadjusted for hemoglobin and carboxyhemoglobin is 9.3, 45% predicted. The diffusing capacity adjusted for alveolar volume is 3.81, 86% predicted. IMPRESSION: The FEV1 is less than 80% predicted and the FEV1: FVC ratio is greater than 70% consistent with Preserved Ratio Impaired Spirometry (PRISm) with a low FVC or a restrictive abnormality. There is significant improvement after inhaling a single dose of albuterol. The lung volumes could not be measu red, therefore a restrictive abnormality cannot be excluded. The diffusing capacity unadjusted for hemoglobin and carboxyhemoglobin is moderately decreased and normalizes when adjusted for alveolar volume. There are no prior studies for comparison
== END 2024-12-13 09:16 | disposition home or self-care (01) ==
PROVIDERS: PCP Nurse Practitioner Family; Visit Provider Nurse Practitioner Family
DX: R94.2 Abnormal results of pulmonary function studies (principal); R06.02 Shortness of breath
CPT/HCPCS: 94060; 94729

== ENCOUNTER 2024-12-21 14:01 | Outpatient (CLI) | payer BC, SELFPAY ==
--- NOTE | ~2024-12-21 | CT_ITS ---
CT Scan of the Chest without Contrast: Clinical Indication: Lung cancer screening, nicotine dependence Technique: Contiguous sections were acquired throughout the chest without intravenous contrast. Dose reduction technique was used on this scan by utilizing automated exposure control and iterative recon struction technique. The dose-length product (DLP) was 72.56 mGy-cm. Findings: There is no evidence of any significant mediastinal, hilar or axillary lymphadenopathy. The mediastin al soft tissues appear normal. There is no evidence of pleural or pericardial effusion. The lungs are clear. No pulmonary nodules or infiltrates are noted. Images through the upper abdomen reveal gallstones. Impression: Lung RADS 1: Negative. 12 month follow-up screening CT advised. Reviewed, dictated and finalized at location . Impression: Lung RADS 1: Negative. 12 month follow-up screening CT advised.
== END 2024-12-21 14:02 | disposition home or self-care (01) ==
LOC: ANHIMG 14:02
PROVIDERS: PCP Nurse Practitioner Family; Visit Provider Nurse Practitioner Family
DX: Z12.2 Encounter for screening for malignant neoplasm of respiratory organs (principal); Z87.891 Personal history of nicotine dependence
CPT/HCPCS: 71271

== ENCOUNTER 2025-03-15 02:17 | Day surgery (SDC) | payer BC, SELFPAY ==
[2025-03-01 09:33] VITALS: BMI 31.3
--- OUTSIDE RECORDS SUMMARY | 2025-03-15 02:20 | XMS_ITS | Clinical Summary ---
Author Organization [facility] Address [address] [place] [id number] Care Team Providers Care Legislative Aide Name Role Phone Unavailable Primary Care Provider Unavailabl e Social History Tobacco Use Types Packs/Day Years Used Date Smoking Tobacco: Never Assessed Comments Unknown Sex and Gender Information Value Date Recorded Sex Assigned at Not on file Legal Sex Female 10:27 PM CDT Gender Identity Not on file Sexual Orientation Not on file Plan of Treatment Health Maintenance Due Date Last Done Comments Hepatitis C Virus (HCV) Screening 1961 TdaP Immunization 1961 Pap Smear 1982 Cervical Cancer Screening (CCS) 1991 HPV/Cotest 1991 Cologuard 2006 Colonoscopy 2006 Colorectal Cancer Screening 2006 Immunochemical Fecal Occult Blood 2006 Pneumococcal Immunization (5 0+ years) (1 of 1 - PCV) 2011 Zoster Immunization (1 of 2) 2011 SARS-COV-2 Immunization ( - season) 2024 07/31/2021, 10/30/2020, 10/09/2020 Influenza Immunization (#1) 2025 Respiratory Syncytial Virus (RSV) Immunization (Adult) (1 - 1-dose 75+ series) 2036 Hepatitis B Immunization Aged Out No longer eligible based on patient's age to complete this topic Human Papillomavirus (HPV) Immunization Aged Out No longer eligible b ased on patient's age to complete this topic Meningococcal Immunization (ACWY) Aged Out No longer eligible b ased on patient's age to complete this topic Rotavirus Immunization Aged Out No lo nger eligible based on patient's age to complete this topic Insurance [employer] on file
[2025-03-15 10:10] VITALS: BMI 30.6
[2025-03-15 10:14] VITALS: BP 125/74; PULSE 70; RESP 18; TEMP 36.2; O2SAT 98
--- NOTE | 2025-03-15 10:17 | WPDANESEPPF ---
Anes - Initial Pre Proc Eval Procedure: Operation Date: 03/15/25 11:30 Proposed Procedures p Screening Colonoscopy - Lele Carroll MD Date/Time: 03/15/25 10:17 Surgeon: Lele Carroll MD Pre Op Diagnosis: Screening Patient Data Age: 64 Gender: F Height: 1.63 m Weight: 81 kg Last Vital Signs Temp 36.2 C L 03/15/25 10:14 Pulse 70 03/15/25 10:14 Resp 18 03/15/25 10:14 BP 125/74 03/15/25 10:14 Pulse Ox 98 03/15/25 10:14 O2 Del Method Room Air 03/15/25 10:14 Allergies Allergy/AdvReac Type Severity Reaction Status Date / Time codeine AdvReac Severe upset Verified 03/15/25 10:10 stomach aspirin AdvReac Mild Nausea Verified 03/15/25 10:10 Home Medications ?Medication ?Instructions ?Recorded ?Confirmed ?Type acetaminophen 500 mg tablet 500 mg PO Q6H PRN Pain 07/24/21 03/01/25 History (Tylenol Extra Strength) albuterol sulfate 90 mcg/actuation 1 puff inhalation Q6H PRN 11/04/24 03/01/25 Rx aerosol inhaler (ProAir HFA) bronchospasm #8.5 grams aspirin 81 mg chewable tablet 81 mg PO DAILY 11/29/24 03/15/25 History fluticasone fur. 100 mcg-umeclid 1 inh inhalation DAILY #60 ea 01/03/25 03/15/25 Rx 62.5 mcg-vilant 25 mcg inhalat.powder (Trelegy Ellipta) inhalational spacing device #1 ea 03/07/25 Rx (ProChamber) Patient hx anesthesia problems: none Family hx anesthesia problems: none Results Review: All pre-operative results and documents have been reviewed as part of the pre-operative evaluation. [facility] Past Medical History Medical History Anxiety Fibroid History of ectopic 1984 and 1992 both surgically managed (normal spontaneous vaginal delivery) Bronchitis uses inhalers daily Surgical History Surgical History History of tubal ligation History of ankle surgery secondary to fracture 2007 Family History Family History Father Family history of thoracic aortic aneurysm Social History Social History Smoking packs per day: 1 Smoking cigarettes per day: 20.0 Years smoked: 30 Smoking pack-years: 30.00 Smoking status: Former smoker Tobacco type: cigarettes Second hand tobacco smoke exposure: No Smoking end date: 08/18/12 Alcohol intake: current Alcohol use details: 2 drinks a month Substance use: never Substance use type: does not use Do You Feel Safe in your Home?: Yes Lack of Transportation: No Lack of Food: Never True Current Housing: I Have Housing Concerned About Future Housing: No Difficulty Paying Gas/Electric Bills: No Difficulty Paying for Meds: No Currently Unemployed: No Education: High School Diploma/GED Difficulty w/ Childcare or Family Care: No Living arrangements: with family Occupation/Education: occupation Gender identity (if verbalized by the patient): Female Spiritual care concerns: No Agree to blood products: Yes Anes - Eval Final PreProcedure Day of Procedure 03/15/25 10:17 Patient weight: obese Heart: regular rate and rhythm Lungs: clear to auscultation Airway: Mallampati scale class III Neurological: alert and oriented Last oral intake: >/= 8 hours ASA classification: II Emergent: no Anesthetic plan: proceed Anesthesia type and monitoring: general GIVS and standard monitoring Results Review: All pre-operative results and documents have been reviewed as part of the pre-operative evaluation. Informed Consent: The patient's anesthetic plan and its attendant risks and benefits were discussed with the patient/family/POA. Questions were solicited and answers provided to the satisfaction of the patient/family/POA.
[2025-03-15] MEDS: LACTATED RINGERS 1,000 ML 150 ML IV CONT (10:20)
--- NOTE | 2025-03-15 10:39 | PM.HPGS ---
History of Present Illness History of Present Illness Consent: Risks, benefits, and alternatives have been discussed and questions answered. Patient agrees to proceed with procedure. Chief complaint: Screening Narrative: Suzette Guajardo is a 64 year old female with colon polyp in 2019 Review of Systems Review of Systems: All systems reviewed & are unremarkable except as noted in HPI and below PMFSH Past Medical History Medical History (Updated 03/15/25 @ 10:39 by Lele Carroll MD) Adenomatous colon polyp Anxiety Fibroid History of ectopic 1984 and 1992 both surgically managed (normal spontaneous vaginal delivery) Bronchitis uses inhalers daily Surgical History Surgical History History of tubal ligation History of ankle surgery secondary to fracture 2007 Family History Family History Father Family history of thoracic aortic aneurysm Social History Social History Smoking packs per day: 1 Smoking cigarettes per day: 20.0 Years smoked: 30 Smoking pack-years: 30.00 Smoking status: Former smoker Tobacco type: cigarettes Second hand tobacco smoke exposure: No Smoking end date: 08/18/12 Alcohol intake: current Alcohol use details: 2 drinks a month Substance use: never Substance use type: does not use Do You Feel Safe in your Home?: Yes Lack of Transportation: No Lack of Food: Never True Current Housing: I Have Housing Concerned About Future Housing: No Difficulty Paying Gas/Electric Bills: No Difficulty Paying for Meds: No Currently Unemployed: No Education: High School Diploma/GED Difficulty w/ Childcare or Family Care: No Living arrangements: with family Occupation/Education: occupation Gender identity (if verbalized by the patient): Female Spiritual care concerns: No Agree to blood products: Yes Meds Home Medications and Allergies Home Medications ?Medication ?Instructions ?Recorded ?Confirmed ?Type acetaminophen 500 mg tablet 500 mg PO Q6H PRN Pain 07/24/21 03/01/25 History (Tylenol Extra Strength) albuterol sulfate 90 mcg/actuation 1 puff inhalation Q6H PRN 11/04/24 03/01/25 Rx aerosol inhaler (ProAir HFA) bronchospasm #8.5 grams aspirin 81 mg chewable tablet 81 mg PO DAILY 11/29/24 03/15/25 History fluticasone fur. 100 mcg-umeclid 1 inh inhalation DAILY #60 ea 01/03/25 03/15/25 Rx 62.5 mcg-vilant 25 mcg inhalat.powder (Trelegy Ellipta) inhalational spacing device #1 ea 03/07/25 Rx (ProChamber) Allergies Allergy/AdvReac Type Severity Reaction Status Date / Time codeine AdvReac Severe upset Verified 03/15/25 10:10 stomach aspirin AdvReac Mild Nausea Verified 03/15/25 10:10 Vital Signs Vital Signs - 24 hr 03/15/25 10:14 Temperature 97.2 F L Pulse Rate 70 Respiratory Rate 18 Blood Pressure 125/74 Pulse Oximetry 98 Oxygen Delivery Room Air Exam Const: General: comfortable and no acute distress HENMT: Face/Nose/Sinus: Normal nares present Eyes: General: appearance normal, both eyes and all related structures Neck: Neck: no JVD Resp: Auscultation: clear to auscultation bilaterally Cardio: Rate: regular rate Rhythm: regular rhythm GI: Inspection: non-distended GI Palp: Yes Soft to palpation Skin: General skin exam: normal color Neuro: General: gait normal Speech: normal speech Extrem: General: normal to inspection Psych: Mental Status: mental status grossly normal Assessment and Plan Assessment and plan (1) Adenomatous colon polyp: Code(s): D12.6 - Benign neoplasm of colon, unspecified Status: Acute Assessment and Plan: colonoscopy
[2025-03-15 10:52] VITALS: BP 96/57; PULSE 74; RESP 19; O2SAT 98
[2025-03-15 11:02] VITALS: BP 107/66; PULSE 64; RESP 15; O2SAT 98
[2025-03-15 11:12] VITALS: BP 102/57; PULSE 62; RESP 20; O2SAT 100
== END 2025-03-15 11:23 | disposition home or self-care (01) ==
PROVIDERS: PCP Nurse Practitioner Family; Referring Provider Nurse Practitioner Family; Visit Provider Internal Medicine Gastroenterology
PROC: 0DJD8ZZ Inspection of Lower Intestinal Tract, Via Natural or Artificial Opening Endoscopic (ICD-10-PCS; CPT 45378; principal; 2025-03-15 11:30)
DX: Z12.11 Encounter for screening for malignant neoplasm of colon (principal); F41.9 Anxiety disorder, unspecified; E66.9 Obesity, unspecified; Z68.30 Body mass index [BMI] 30.0-30.9, adult; Z79.51 Long term (current) use of inhaled steroids; Z79.82 Long term (current) use of aspirin; Z98.890 Other specified postprocedural states; Z98.51 Tubal ligation status; Z86.0100 Personal history of colon polyps, unspecified; Z87.891 Personal history of nicotine dependence; Z82.49 Family history of ischemic heart disease and other diseases of the circulatory system
CPT/HCPCS: 45378; J2003; J2405; J7120